=== PATIENT | male | born 1975 | race Caucasian/White ===

== ENCOUNTER 2020-12-09 11:46 | Emergency (ER) | payer OTHER ==
[2020-12-09 12:24] LABS: BASOPHIL 0.4 % (0-2); EOSINOPHIL 0.6 % (0-5); HCT 38.9 % (42.0-52.0); HGB 13.8 g/dl (13.2-18.0); MCH 32.5 pg (25.0-31.0); MCHC 35.5 g/dL (32.0-36.0); MCV 91.7 fL (78.0-100.0); MONOCYTE 10.5 % (0-12); MPV 9.8 fL (6.0-9.5); NEUTROPHIL 63.2 % (41-80); NRBC 0; PLT 153 K/uL (150-400); RBC 4.24 M/uL (4.70-6.00); RDW 14.8 % (11.5-14.0)
[2020-12-09 12:35] LABS: INR 1.39 (0.9-1.2); PROTHROMBIN TIME 16.2 SECONDS (11.4-13.6)
[2020-12-09 12:36] LABS: PTT 32.2 SECONDS (22.2-34.7)
[2020-12-09 12:45] LABS: ALBUMIN 3.4 g/dL (3.4-5.0); BILIRUBIN - TOTAL 3.1 mg/dL (0.2-1.0); BUN/CREAT RATIO (CALC) 16.7 RATIO; CREATININE 0.72 mg/dL (0.67-1.17); GLOBULIN (CALCULATION) 4.4 g/dL; POTASSIUM 3.3 mmol/L (3.5-5.1); TOTAL PROTEIN 7.8 g/dL (6.4-8.2)
[2020-12-09 13:35] LABS: CORONAVIRUS 2019 SARS-COV-2 NEGATIVE (NEGATIVE); INFLUENZA A NAA NEGATIVE (NEGATIVE)
[2020-12-09 14:01] LABS: BILIRUBIN 2+ mg/dL (NEGATIVE); BLOOD NEGATIVE Ery/uL (NEGATIVE); CLARITY CLEAR (CLEAR); COLOR YELLOW (YELLOW); GLUCOSE (U) NORMAL (NORMAL); LEUKOCYTES NEGATIVE Leu/uL (NEGATIVE); NITRITE NEGATIVE (NEGATIVE); PROTEIN NEGATIVE (NEGATIVE); pH 6.5 (5.0-9.0)
[2020-12-09 15:05] LABS: AMPHETAMINES NEGATIVE (NEGATIVE); BARBITURATES NEGATIVE (NEGATIVE); ECSTASY (MDMA) NEGATIVE (NEGATIVE); MARIJUANA (THC) NEGATIVE (NEGATIVE); METHADONE NEGATIVE (NEGATIVE); OPIATES NEGATIVE (NEGATIVE); OXYCODONE NEGATIVE (NEGATIVE)
== END 2020-12-09 14:40 | disposition home or self-care (01) ==
LOC: FER 11:46
PROVIDERS: Emergency Medicine
DX: J02.9 Acute pharyngitis, unspecified (principal); K74.60 Unspecified cirrhosis of liver; R16.1 Splenomegaly, not elsewhere classified; Z88.6 Allergy status to analgesic agent; Z20.822 Contact with and (suspected) exposure to COVID-19
CPT/HCPCS: 36415; 80053; 80305; 81003; 85025; 85610; 85730; 87088; 87880; J7030; Q9967; U0002